=== PATIENT | female | born 2000 | race Caucasian/White ===

== ENCOUNTER 2024-06-27 05:57 | Inpatient (IN) | payer MEDICAID ==
[~2024-06-27] VITALS: Ht 157.5 cm; Wt 74.0 kg
[~2024-06-27 05:57] MED LIST: AUGMENTIN ES-6100 ML PO; CLARITIN5 MG/5 ML PO; NO DAILY MEDS; PREDNISOLON5 MG/5 ML PO
[2024-06-27] MEDS ORDERED: Albuterol Sulf/Ipratropium 3 ML VIAL NEB ONE (06:00)
[2024-06-27 06:07] VITALS: BP 100/81
[2024-06-27 06:15] LABS: HEMATOCRIT 47.5 % (37.0-47.0); MEAN CELL VOLUME 91.2 fl (81.0-99.0); MEAN CORPUSCULAR HGB 29.6 pg (27.0-31.0); MEAN CORPUSCULAR HGB CONC 32.4 g/dl (33.0-37.0); MEAN PLATELET VOLUME 10.1 fl (9.6-12.3); PLATELET COUNT AUTOMATED 522 10*3/uL (130-400); RED BLOOD COUNT 5.21 10*6/uL (4.10-5.10); RED CELL DISTRI WIDTH 12.4 % (0-14.5); WHITE BLOOD COUNT 26.4 10*3/uL (4.8-10.8)
[2024-06-27 06:16] LABS: MANUAL DIFF REFLEX YES
[2024-06-27 06:19] VITALS: BP 120/78
[2024-06-27 06:29] LABS: BUN 14 mg/dl (9-23); CHLORIDE 102 mmol/L (98-107); POTASSIUM 5.8 mmol/L (3.4-5.1)
[2024-06-27 06:52] LABS: BASOPHILS 2 % (0-1); PLATELET SUFFICIENCY HIGH (NORMAL); TOTAL CELLS COUNTED 100 #CELLS
[2024-06-27] MEDS ORDERED: SODIUM CHLORIDE 0.9% 1,000 ML IV ONE (06:55)
[2024-06-27] MEDS ORDERED: INSULIN REGULAR, HUMAN 1 UNIT/0.01 ML IV ONE ×2 (06:55)
[2024-06-27] MEDS ORDERED: FLUOXETINE HYDR20 M1 PO (07:41)
[2024-06-27] MEDS ORDERED: MONTELUKAST SOD10 MG PO (07:41)
[2024-06-27] MEDS ORDERED: VENTOLIN 02.5 MG/3 M INH (07:42)
[2024-06-27] MEDS ORDERED: BISACODYL 5 MG TAB PO PRN (07:45)
[2024-06-27] MEDS ORDERED: BISACODYL 10 MG SUPP R PRN (07:45)
[2024-06-27] MEDS ORDERED: Ondansetron Hydrochloride 4 MG/2 ML VIAL IV PRN (07:45)
[2024-06-27] MEDS ORDERED: Magnesium Hydroxide 30 ML UDC PO PRN (07:45)
[2024-06-27] MEDS ORDERED: MAGNESIUM SULFATE 50 ML IV ONE (07:55)
[2024-06-27] MEDS ORDERED: Albuterol Sulf/Ipratropium 3 ML VIAL NEB SCH (07:56)
[2024-06-27 08:09] VITALS: BP 103/59
[2024-06-27] MEDS ORDERED: methylPREDNISolone sod succ 40 MG IV SCH (08:20)
[2024-06-27 08:25] LABS: BUN 15 mg/dl (9-23); CHLORIDE 108 mmol/L (98-107)
[2024-06-27 08:44] LABS: POTASSIUM 4.2 mmol/L (3.4-5.1)
[2024-06-27] MEDS ORDERED: DEXTROSE 10 % IN WATER 250 ML IV PRN (08:50)
[2024-06-27] MEDS ORDERED: methylPREDNISolone sod succ 40 MG VIAL IV SCH (09:00)
[2024-06-27] MEDS ORDERED: FLUoxetine Hydrochloride 20 MG CAP PO SCH (10:00)
[2024-06-27] MEDS ORDERED: Enoxaparin Sodium 40 MG/0.4 ML SYR SC SCH (10:00)
[2024-06-27] MEDS ORDERED: INSULIN LISPRO 1 UNIT/0.01 ML SQ SCH (11:30)
[2024-06-27 13:51] LABS: BILIRUBIN Negative (Negative); BLOOD 1+ (Negative); CLARITY Clear (Clear); COLOR Yellow (Yellow); GLUCOSE 2+ (Negative); KETONE Negative (Negative); LEUKO ESTERASE Negative (Negative); NITRITE Negative (Negative); PH 5.5 (4.5-8.0); SPECIFIC GRAVITY 1.015 (1.001-1.030); UROBILINOGEN 0.2 E.U./dl (0.0-1.0)
[2024-06-27 16:24] VITALS: BP 114/60
[2024-06-27 20:00] VITALS: BP 121/59
[2024-06-28] VITALS: BP 104/62
[2024-06-28] MEDS ORDERED: SODIUM CHLORIDE 0.9% 1,000 ML IV ONE (02:00)
[2024-06-28] MEDS ORDERED: METOPROLOL SUCCINATE XR 25 MG TAB PO ONE (02:05)
[2024-06-28] MEDS ORDERED: Albuterol Sulf/Ipratropium 3 ML VIAL NEB PRN (06:05)
[2024-06-28 08:00] VITALS: BP 127/74
[2024-06-28 08:19] LABS: BASO % 0.1 % (0.0-1.0); HEMATOCRIT 43.2 % (37.0-47.0); MEAN CELL VOLUME 88.7 fl (81.0-99.0); MEAN CORPUSCULAR HGB 28.5 pg (27.0-31.0); MEAN CORPUSCULAR HGB CONC 32.2 g/dl (33.0-37.0); MEAN PLATELET VOLUME 9.8 fl (9.6-12.3); MONO # 0.9 10*3/uL (0.1-1.0); MONO % 4.4 % (3.0-9.0); NEUT # 18.6 10*3/uL (2.3-7.9); NEUT % 89.4 % (47.0-73.0); PLATELET COUNT AUTOMATED 381 10*3/uL (130-400); RED BLOOD COUNT 4.87 10*6/uL (4.10-5.10); RED CELL DISTRI WIDTH 12.5 % (0-14.5); WHITE BLOOD COUNT 20.8 10*3/uL (4.8-10.8)
[2024-06-28 08:31] LABS: ACT PARTIAL THROMBO TIME 24.3 SECONDS (20.0-32.1)
[2024-06-28 09:32] LABS: ALKALINE PHOSPHATASE 84 U/L (46-116); BUN 11 mg/dl (9-23); CHLORIDE 107 mmol/L (98-107); CHOLESTEROL 148 mg/dL (<200); LDL CHOLESTEROL 64 mg/dL (9-159); POTASSIUM 4.4 mmol/L (3.4-5.1); SGPT/ALT 23 U/L (5-49); TOTAL PROTEIN 7.1 gm/dL (6.0-8.0); TRIGLYCERIDES 67 mg/dl (<150); VITAMIN D, 25-HYDROXY 7.4 ng/mL (30-100)
[2024-06-28 12:00] VITALS: BP 112/70
[2024-06-28] MEDS ORDERED: ERGOCALCIFEROL 50,000 IU CAP (1.25 MG) PO ONE ×2 (12:15→13:30)
[2024-06-28] MEDS ORDERED: Montelukast Sodium 10 MG TAB PO SCH (13:16)
[2024-06-28 16:00] VITALS: BP 105/65
[2024-06-28 20:00] VITALS: BP 125/85
[2024-06-29] VITALS: BP 103/56
[2024-06-29 06:09] LABS: BASO % 0.1 % (0.0-1.0); HEMATOCRIT 42.3 % (37.0-47.0); MEAN CELL VOLUME 90.6 fl (81.0-99.0); MEAN CORPUSCULAR HGB 28.9 pg (27.0-31.0); MEAN CORPUSCULAR HGB CONC 31.9 g/dl (33.0-37.0); MEAN PLATELET VOLUME 10.4 fl (9.6-12.3); MONO # 0.5 10*3/uL (0.1-1.0); MONO % 3.2 % (3.0-9.0); NEUT # 14.4 10*3/uL (2.3-7.9); NEUT % 89.7 % (47.0-73.0); PLATELET COUNT AUTOMATED 358 10*3/uL (130-400); RED BLOOD COUNT 4.67 10*6/uL (4.10-5.10); RED CELL DISTRI WIDTH 12.5 % (0-14.5); WHITE BLOOD COUNT 16.1 10*3/uL (4.8-10.8)
[2024-06-29 06:44] LABS: BUN 15 mg/dl (9-23); CHLORIDE 103 mmol/L (98-107); POTASSIUM 4.7 mmol/L (3.4-5.1)
[2024-06-29 08:00] VITALS: BP 122/71
[2024-06-29] MEDS ORDERED: Montelukast Sodium 10 MG TAB PO SCH (10:00)
[2024-06-29] MEDS ORDERED: methylPREDNISolone sod succ 125 MG VIAL IV SCH (10:00)
[2024-06-29] MEDS ORDERED: PREDNISONE10 MG PO (11:33)
[2024-06-29 12:00] VITALS: BP 116/57
[2024-06-29] MEDS ORDERED: VENT7GM INH (15:43)
== END 2024-06-29 13:19 | disposition home or self-care (01) | DRG 133 ==
LOC: ED 05:57 → 5E 07:13 → EDHOLD 07:13 → 5E 15:08
PROVIDERS: Internal Medicine; Student in an Organized Health Care Education/Training Program; ADMIT Internal Medicine; ATTEND Internal Medicine
DX: J96.01 Acute respiratory failure with hypoxia (principal); E87.1 Hypo-osmolality and hyponatremia; R65.11 Systemic inflammatory response syndrome (SIRS) of non-infectious origin with acute organ dysfunction; J45.901 Unspecified asthma with (acute) exacerbation; E87.5 Hyperkalemia; E87.8 Other disorders of electrolyte and fluid balance, not elsewhere classified; F41.9 Anxiety disorder, unspecified; F84.5 Asperger's syndrome; E11.65 Type 2 diabetes mellitus with hyperglycemia; Z79.51 Long term (current) use of inhaled steroids; Z88.8 Allergy status to other drugs, medicaments and biological substances